=== PATIENT | male | born 1975 | race American Indian/Alaskan Native ===

== ENCOUNTER 2020-06-28 12:29 | Emergency (ER) | payer SELFPAY ==
[2020-06-28 12:47] VITALS: BP 126/75
--- NOTE | 2020-06-28 12:49 | Event Note ---
ED Screening Note Date of service: 06/28/20 Time: 12:48 ED Screening Note: Patient complains of left forehead mass x3 weeks States he was seen at another ER and had a CAT scan done-patient is unsure of his results He denies any pain States masses increasing in size This initial assessment/diagnostic orders/clinical plan/treatment(s) is/are subject to change based on patients health status, clinical progression and re- assessment by fellow clinical providers in the ED. Further treatment and workup at subsequent clinical providers discretion. Patient/guardian urged not to elope from the ED as their condition may be serious if not clinically assessed and managed. Initial orders include: Labs CT
[2020-06-28 13:23] LABS: Alanine Aminotransferase 14 units/L (7-56); Albumin 3.4 g/dL (3.9-5); Blood Urea Nitrogen 9 mg/dL (9-20); Calcium 8.8 mg/dL (8.4-10.2); Hemolysis Index 7
[2020-06-28 13:47] LABS: BUN/Creatinine Ratio 13
--- NOTE | 2020-06-28 14:39 | Emergency Department Report ---
- General Chief complaint: Skin/Abscess/Foreign Body Stated complaint: HEAD INJURY Time Seen by Provider: 06/28/20 12:47 Source: patient Mode of arrival: Ambulatory Limitations: No Limitations - History of Present Illness Initial comments: 44-year-old male who presents to the emergency department with a growth to the left portion of his hand. Patient states that it has been present for weeks. He had a CT scan done 3 weeks ago in [place] and was told that it was within normal limits and that he should follow-up with her primary care doctor. Patient states that there has been some increasing cough. He denies any visual problems, numbness, tingling, weakness. He has not had a headache. There is no pain to the area. - Related Data Allergies Allergy/AdvReac Type Severity Reaction Status Date / Time No Known Allergies Allergy Unverified 06/28/20 12:50 Abscess Boil HPI - HPI Chief Complaint: Skin/Abscess/Foreign Body Stated Complaint: HEAD INJURY Time Seen by Provider: 06/28/20 12:47 Allergies/Adverse Reactions: Allergies Allergy/AdvReac Type Severity Reaction Status Date / Time No Known Allergies Allergy Unverified 06/28/20 12:50 ED Review of Systems ROS: Stated complaint: HEAD INJURY Other details as noted in HPI Constitutional: denies: chills, diaphoresis Eyes: as per HPI. denies: vision change ENT: as per HPI Respiratory: no symptoms reported Cardiovascular: denies: chest pain Endocrine: no symptoms reported Gastrointestinal: denies: abdominal pain, nausea, vomiting Genitourinary: denies: urgency, dysuria Musculoskeletal: denies: back pain Skin: as per HPI. denies: rash Neurological: denies: headache, weakness, numbness, paresthesias, confusion, abnormal gait Psychiatric: denies: anxiety, depression Hematological/Lymphatic: denies: easy bleeding ED Past Medical Hx - Past Medical History Previous Medical History?: No - Surgical History Past Surgical History?: No ED Physical Exam - General Limitations: No Limitations General appearance: alert, in no apparent distress - Head Head exam: Present: atraumatic, other. Absent: normocephalic (Patient has a large growth noted to the left portion of his forehead. It is nontender. It is soft.) - Eye Eye exam: Present: normal appearance, PERRL, EOMI Pupils: Present: normal accommodation - ENT ENT exam: Present: normal exam - Neck Neck exam: Present: normal inspection - Respiratory Respiratory exam: Present: normal lung sounds bilaterally. Absent: respiratory distress, chest wall tenderness - Cardiovascular Cardiovascular Exam: Present: regular rate, normal rhythm, normal heart sounds - GI/Abdominal GI/Abdominal exam: Present: soft. Absent: distended, tenderness - Rectal Rectal exam: Present: deferred - Back Exam Back exam: Present: normal inspection - Neurological Exam Neurological exam: Present: alert, oriented X3 - Psychiatric Psychiatric exam: Present: normal affect - Skin Skin exam: Present: warm, dry, intact ED Course Vital Signs 06/28/20 12:46 Temperature 98.6 F Pulse Rate 74 Respiratory 18 Rate Blood Pressure 126/75 O2 Sat by Pulse 100 Oximetry - Reevaluation(s) Reevaluation #1: 06/28/20 16:16 Patient eloped prior to disposition however CT head does not show any emergent findings. Patient was going to need to follow-up with primary care for further management of this. ED Medical Decision Making - Lab Data Result diagrams: 06/28/20 14:35 06/28/20 12:53 - Medical Decision Making Patient is a 44-year-old male who presents to emergency department with a growth to his left side of his head. Patient states that has been there for weeks. He underwent a CT scan in [place] 3 weeks ago and was told to follow-up with primary care. Differential includes lipoma versus cyst. Does not appear to be infected as there is no pain. Patient was seen in triage basic labs and CT head were ordered. I have reviewed the images but I am waiting for the radiology report for patient CT head. I think patient will likely be discharged as I do not think that this is an acute emergent process. Patient will likely need primary care and or plastic versus dermatology for further management of this growth. Critical care attestation.: If time is entered above; I have spent that time in minutes in the direct care of this critically ill patient, excluding procedure time. ED Disposition Clinical Impression: Head swelling Disposition: DC-01 TO HOME OR SELFCARE Is pt being admited?: No Does the pt Need Aspirin: No Condition: Stable
[2020-06-28 15:28] LABS: Basophils # (Auto) 0.1 K/mm3 (0.0-0.1); Basophils % (Auto) 0.7 % (0.0-1.8); Eosinophils # (Auto) 0.9 K/mm3 (0.0-0.4); Eosinophils % (Auto) 8.4 % (0.0-4.3); Hematocrit 35.4 % (35.5-45.6); Hemoglobin 11.7 gm/dl (11.8-15.2); Lymphocytes # (Auto) 2.1 K/mm3 (1.2-5.4); Lymphocytes % (Auto) 19.4 % (13.4-35.0); Mean Corpuscular HGB Conc 33 % (32-34); Mean Corpuscular Volume 88 fl (84-94); Monocytes # (Auto) 0.8 K/mm3 (0.0-0.8); Monocytes % (Auto) 7.4 % (0.0-7.3); Platelet Count 464 K/mm3 (140-440); Red Blood Count 4.01 M/mm3 (3.65-5.03); Red Cell Distribution Width 15.3 % (13.2-15.2)
--- NOTE | 2020-06-28 16:09 | Cat Scan Report ---
CT head/brain wo con INDICATION / CLINICAL INFORMATION: 44 years Male; MAIN. TECHNIQUE: Routine CT head without contrast. All CT scans at this location are performed using CT dos e reduction for ALARA by means of automated exposure control. COMPARISON: None. FINDINGS: BRAIN / INTRACRANIAL CONTENTS: No acute hemorrhage, mass effect, midline shift, hydrocephalus, or ac dimple, large territorial infarct. No signs of significant atrophy or chronic infarct. No significant wh ite matter abnormality seen. CRANIOCERVICAL JUNCTION: No significant abnormality. ORBITS: No significant abnormality of visualized orbits. SINUSES / MASTOIDS: Visualized paranasal sinuses and mastoid air cells are essentially clear. ADDITIONAL FINDINGS: Significant subcutaneous soft tissue swelling seen superficial to the left front al, parietal, temporal convexities, measuring up to 2.2 cm in thickness. Large areas of central decre ased attenuation are seen in this area of swelling, suggesting fluid. These findings extend nearly to the skin surface throughout the region of swelling and would be easily accessible with a needle IMPRESSION: 1. No focal intra-axial mass, hemorrhage, hydrocephalus, or acute, large territorial infarct. 2. Significant subcutaneous soft tissue swelling superficial to the left frontal, parietal, and tempo ral bones. Signer Name: Anshul Mao MD, III Signed: 06/28/2020 4:04 PM Workstation Name: [id number]
== END 2020-06-28 15:00 | disposition home or self-care (01) ==
LOC: ED 12:29
DX: R22.0 Localized swelling, mass and lump, head (principal)
CPT/HCPCS: 36415; 70450; 80048; 80053; 85025